=== PATIENT | male | born 1985 | race African-American/Black ===

== ENCOUNTER 2019-05-03 14:23 | Emergency (ER) | payer MEDICAID ==
[~2019-05-03] VITALS: Ht 172.7 cm; Wt 82.0 kg
[2019-05-03] MEDS ORDERED: IBUPROFEN 600MG TABLET PO ONE (15:30)
[2019-05-03 17:50] VITALS: BP 128/89
== END 2019-05-03 18:11 | disposition home or self-care (01) ==
LOC: ER 14:23
DX: S09.90XA Unspecified injury of head, initial encounter (principal); Y08.89XA Assault by other specified means, initial encounter; Y93.89 Activity, other specified; Y92.89 Other specified places as the place of occurrence of the external cause; Y99.8 Other external cause status
CPT/HCPCS: 99284